=== PATIENT | female | born 1975 | race Caucasian/White ===

== ENCOUNTER 2021-04-23 14:26 | Inpatient (IN) | payer OTHER ==
[~2021-04-23] VITALS: Ht 152.4 cm; Wt 112.6 kg
--- NOTE | ~2021-04-23 | CON ---
[address] [address] CONSULTATION Name: SHANNANSHEILA L Room: [address] IN M.R.#: [id number] Admission: 04/23/21 Attend Phys: Bela Evangelista Discharge: Date of : 77 Report #: [id number] THIS REPORT FOR: cc: CLAUDIO - No family physician/PCP FAM - No family physician/PCP Bhavik Francis MD ~ DATE OF CONSULTATION: 04/24/2021 HISTORY OF PRESENT ILLNESS: This is a 45-year-old female patient who was seen by me yesterday as well as today. The patient was admitted with left-sided facial numbness as well as numbness in the left arm. This has become better. The patient was markedly hypertensive when she came in and she still continued to be hypertensive. REVIEW OF SYSTEMS: Positive for uncontrolled hypertension, history of rheumatoid arthritis, tobacco abuse. During this evaluation, she was also found to have severe dyslipidemia. A 14-point review of system was otherwise noncontributory, but there may be noncompliance with the medication as I understand from the patient. PAST MEDICAL HISTORY: Negative for stroke. FAMILY HISTORY: Negative for early age stroke. SOCIAL HISTORY: She smokes. PHYSICAL EXAMINATION: NEUROLOGIC: The patient's examination has indicated she was alert, responsive, able to follow simple commands. Cranial nerve and neuromuscular examination, both times was mostly unremarkable. There was no cerebellar sign. There is no meningeal sign. There is no carotid bruit. CARDIORESPIRATORY: Unremarkable. VITAL SIGNS: Blood pressure curve was reviewed and she is markedly hypertensive and still is. LABORATORY DATA: White count is normal. She had a CT angiogram of the head, which I reviewed, that was mostly unremarkable. She had an MRI and I reviewed the films and that demonstrated multiple hyperintensities, but they are not perpendicular to the ventricle and many of them are in stephens-white junction. Radiologist indicated demyelinating disorder, but in this patient who has so many vascular risk factors, the possibility of chronic ischemic disease also needs to be considered. RECOMMENDATIONS: 1. Tight controlling of her vascular risk factors, which include severe [facility] [address] [place] [address] CONSULTATION Name: SHEILA CAMPBELL Room: [address] IN [facility]#: [id number] Admission: 04/23/21 Attend Phys: Bela Evangelista Discharge: Date of : 77 Report #: [id number] hypertension, tobacco abuse and severe dyslipidemia. 2. I think it will be desirable to do the spinal tap in this patient to look for MS marker and I talked to her a little bit today and we will talk to her more tomorrow. More than 50 minutes of time was spent taking care of this patient today and majority was spent counseling and coordinating. MRI was questionable with a metal first, but I talked to MRI and they talked to the patient and subsequently was able to do this MRI successfully. By: 1956 [id number] Francis MD /kulwinder
[~2021-04-23 14:26] MED LIST: BACTRIM DS TAB1 EACH PO; IBUPROFEN 800800 M1 PO
[2021-04-23 14:36] VITALS: BP 219/140
[2021-04-23 15:29] LABS: ABSOLUTE EOSINOPHILS 0.1 thou/uL (0.0-0.7); ABSOLUTE LYMPHOCYTES 1.9 thou/uL (0.8-5.3); ABSOLUTE MONOCYTES 0.5 thou/uL (0.0-1.2); ABSOLUTE NEUTROPHILS 4.5 thou/uL (1.6-8.1); BASOPHILS 0.6 %; EOSINOPHILS 1.3 %; HEMATOCRIT 45.3 % (37.0-47.0); HEMOGLOBIN 15.6 gm/dL (12.0-15.0); LYMPHOCYTES 27.1 %; MCH 33.9 pg (26.0-34.0); MCHC 34.6 g/dL (28.0-37.0); MCV 98.2 fL (80.0-100.0); MONOCYTES 6.5 %; MPV 8.3 fl. (7.2-11.1); NUCLEATED RBCS 0 /100WBC; PLATELET COUNT* 239 thou/uL (150-400); POLYS 64.5 %; RBC 4.61 mil/uL (4.20-5.00); RDW-CV 13.6 % (10.5-14.5)
[2021-04-23 15:33] LABS: ANION GAP 10 mmol/L (7-16); BUN 12 mg/dL (7-18); CALCIUM 8.8 mg/dL (8.5-10.1); CHLORIDE 100 mmol/L (98-107); CO2 25 mmol/L (21-32); CREATININE 0.9 mg/dL (0.6-1.3); GLUCOSE 107 mg/dL (70-99); SODIUM 135 mmol/L (136-145)
[2021-04-23 15:37] LABS: ALBUMIN 3.8 g/dL (3.4-5.0); ALKALINE PHOSPHATASE 88 U/L (46-116); CHOLESTEROL 284 mg/dL (<200); HDL CHOLESTEROL 49 mg/dL (>40); LDL CHOLESTEROL 201 mg/dL (<100); PROTIME 10.2 Seconds (9.20-11.50); SGOT 75 U/L (15-37); SGPT 69 U/L (30-65); TC:HDL 5.8 Ratio (Not establshd); TOTAL BILIRUBIN 0.5 mg/dL (<0.1-1.0); TOTAL PROTEIN 7.6 g/dL (6.4-8.2); TRIGLYCERIDE 170 mg/dL (<150); VLDL 34 mg/dL (<40)
[2021-04-23 15:38] LABS: SERUM ASSESSMENT Clear
--- NOTE | 2021-04-23 15:58 | EKG ---
[place] [address] ELECTROCARDIOGRAM REPORT Name: SHEILA CAMPBELL Room: [facility]#: [id number] Admission: 04/23/21 Attend Phys: Discharge: Date of : 77 Date of Service: 04/23/21 1528 Report #: [id number] THIS REPORT FOR: //name// [facility] ED Test Date: 2021-04-23 Test Time: 15:28:35 Pat Name: SHEILA CAMPBELL Department: Room: Gender: Java Web Developer: : 1975 Requested By: Komal Mitchell Order Number: [id number] MD: Jose R Bobo Measurements Intervals [place] Rate: 74 P: 40 AR: 154 QRS: 29 QRSD: 89 T: 63 QT: 400 QTc: 444 Interpretive Statements Sinus rhythm Probable left atrial enlargement RSR' in V1 or V2, right VCD or RVH No previous ECG available for comparison Electronically Signed On 04-23-2021 15:58:36 CDT by Jose R Bobo [email or web address] <ELECTRONICALLY SIGNED> By: Jose R Bobo MD, [facility] 04/23/21 1558 1528 1528 Jose R Bobo MD, [facility] /EPI
[2021-04-23 16:42] LABS: ESR (SEDRATE) 8 mm/hr (0-20)
[2021-04-23 17:40] VITALS: BP 163/99
[2021-04-23 20:03] VITALS: BP 166/89
[2021-04-24] VITALS (7 sets, daily range): BP systolic 148–181; BP diastolic 66–97
[2021-04-24 02:06] LABS: GLYCOHEMOGLOBIN (HGB A1C) 5.5 % (4.8-5.6)
--- NOTE | 2021-04-24 16:04 | 2DMMODE ---
[place] [address] 2 D/M-MODE ECHOCARDIOGRAM Name: SHEILA CAMPBELL Room: [address] IN [facility]#: [id number] Admission: 04/23/21 Attend Phys: Jose Miles Discharge: Date of : 77 Date of Service: 04/24/21 1604 Report #: [id number] THIS REPORT FOR: cc: FAM - No family physician/PCP FAM - No family physician/PCP Benito Ervin MD [facility] ~ APPROVED REPORT Study performed: 04/24/2021 10:05:28 EXAM: Comprehensive 2D, Doppler, and color-flow Echocardiogram Patient Location: In-Patient Room #: [facility] Status: routine BSA: 2.05 HR: 65 bpm BP: 148/94 mmHg Rhythm: NSR Other Information Study Quality: Good Indications CVA/TIA Echo Enhancing Agent Indication: Rule out Shunt Agent(s) / Amount(s) Used: Agitated Saline 10 cc 2D Dimensions IVSd: 10.99 (7-11mm) LVOT Diam: 22.15 (18-24mm) LVDd: 46.16 mm PWd: 10.62 (7-11mm) Ascending Ao: 28.97 (22-36mm) LVDs: 23.84 (25-40mm) Aortic Root: 30.70 mm Volumes Left Atrial Volume (Systole) LA ESV Index: 25.10 mL/m2 Aortic Valve AoV Peak Noe.: 1.49 m/s AO Peak Gr.: 8.89 mmHg LVOT Max P.86 mmHg AO Mean Gr.: 4.52 mmHg LVOT Mean P.82 [place] [address] 2 D/M-MODE ECHOCARDIOGRAM Name: SHEILA CAMPBELL Room: [address] IN ..#: [id number] Admission: 04/23/21 Attend Phys: Jose Miles Discharge: Date of : 77 Date of Service: 04/24/21 1604 Report #: [id number] LVOT Max V: 0.98 m/s AO V2 VTI: 30.15 cm LVOT Mean V: 0.61 m/s ANGELIKA (VTI): 2.58 cm2 LVOT V1 VTI: 20.18 cm Mitral Valve E/A Ratio: 1.38 MV Decel. Time: 200.98 ms MV E Max Noe.: 0.83 m/s MV PHT: 58.28 ms MVA (PHT): 3.77 cm2 TDI E/Lateral E': 7.55 E/Medial E': 8.30 Medial E' Noe.: 0.10 m/s Lateral E' Noe.: 0.11 m/s Pulmonary Valve PV Peak Noe.: 1.11 m/s PV Peak Gr.: 4.89 mmHg Left Ventricle The left ventricle is normal size. There is normal LV segmental wall motion. There is normal left ventricular wall thickness. Left ventricular systolic function is normal. LVEF is 60-65%. The left ventricular diastolic function is normal. Right Ventricle The right ventricle is normal size. The right ventricular systolic function is normal. Atria The left atrium size is normal. The interatrial septum is intact with no evidence for an atrial septal defect. The right atrium size is normal. Aortic Valve The aortic valve is normal in structure. No aortic regurgitation is present. There is no aortic valvular stenosis. Mitral Valve The mitral valve is normal in structure. Trace mitral regurgitation. No evidence of mitral valve stenosis. Tricuspid Valve The tricuspid valve is normal in structure. Trace tricuspid regurgitation. Unable to assess PA pressure[place] [address] 2 D/M-MODE ECHOCARDIOGRAM Name: SHEILA CAMPBELL Juan Carlos Room: [address] IN [facility]#: [id number] Admission: 04/23/21 Attend Phys: Jose Miles Discharge: Date of : 77 Date of Service: 04/24/21 1604 Report #: [id number] Pulmonic Valve The pulmonary valve is normal in structure. There is no pulmonic valvular regurgitation. Great Vessels The aortic root is normal in size. IVC is normal in size and collapses >50% with inspiration. Pericardium There is no pericardial effusion. <Conclusion> The left ventricle is normal size. There is normal left ventricular wall thickness. Left ventricular systolic function is normal. LVEF is 60-65%. The left ventricular diastolic function is normal. There is normal LV segmental wall motion. The interatrial septum is intact with no evidence for an atrial septal defect. Trace mitral regurgitation. Trace tricuspid regurgitation. <ELECTRONICALLY SIGNED> By: Benito Ervin MD, FACC 04/24/21 1604 1604 1604 Benito Ervin MD, FACC /INF
[2021-04-25 04:20] VITALS: BP 162/87
[2021-04-25] MEDS ORDERED: NORVASC5 MG PO ×2 (08:48→09:00)
[2021-04-25] MEDS ORDERED: ASPIRIN325 PO (08:48)
[2021-04-25] MEDS ORDERED: LIPITOR40 MG PO (08:48)
[2021-04-25 12:00] VITALS: BP 165/94
[2021-04-25 16:00] VITALS: BP 153/81
[2021-04-25 19:53] VITALS: BP 149/89
[2021-04-26 00:54] VITALS: BP 173/82
[2021-04-26 04:33] LABS: HEMATOCRIT 41.7 % (37.0-47.0); HEMOGLOBIN 14.2 gm/dL (12.0-15.0); MCH 34.1 pg (26.0-34.0); MCHC 34.1 g/dL (28.0-37.0); MCV 100.1 fL (80.0-100.0); MPV 8.4 fl. (7.2-11.1); RBC 4.17 mil/uL (4.20-5.00); RDW-CV 13.4 % (10.5-14.5); WBC 5.7 thou/uL (4.0-11.0)
[2021-04-26 04:46] LABS: APTT 25.2 Seconds (25.0-31.3); PROTIME 10.4 Seconds (9.20-11.50)
[2021-04-26 04:53] LABS: ALBUMIN 3.3 g/dL (3.4-5.0); CALCIUM 8.7 mg/dL (8.5-10.1); CREATININE 0.8 mg/dL (0.6-1.3); TOTAL BILIRUBIN 0.5 mg/dL (<0.1-1.0); TOTAL PROTEIN 6.9 g/dL (6.4-8.2)
[2021-04-26 05:19] VITALS: BP 143/77
[2021-04-26 08:27] VITALS: BP 168/94
[2021-04-26 12:47] VITALS: BP 179/88
[2021-04-26 13:50] VITALS: BP 179/88
[2021-04-26] MEDS ORDERED: CLEOCIN HCL300 MG PO (15:01)
[2021-04-26 15:36] VITALS: BP 179/88
== END 2021-04-26 16:21 | disposition home or self-care (01) | DRG 305 ==
LOC: M.ERS 14:26 → M.TBA-ER 16:22 → M.2W 17:59
PROVIDERS: Nurse Practitioner Family; Psychiatry & Neurology Neuromuscular Medicine; ADMIT Internal Medicine; ATTEND Internal Medicine
DX: I16.1 Hypertensive emergency (principal); I10 Essential (primary) hypertension; M06.9 Rheumatoid arthritis, unspecified; Z20.822 Contact with and (suspected) exposure to COVID-19; Z88.0 Allergy status to penicillin